=== PATIENT | female | born 1970 ===

== ENCOUNTER 2018-04-28 21:20 | Emergency (ER) | payer SELFPAY ==
[2018-04-28 22:06] VITALS: BMI 30.1
[2018-04-28 22:11] VITALS: O2SAT 95
--- NOTE | 2018-04-28 23:05 | ED PDOC ---
HPI:Nausea, Vomiting, Diarrhea Time Seen by Provider: 04/28/18 22:32 Chief Complaint (Nursing): Flu-like Symptoms Chief Complaint (Provider): Flu-like Symptoms History Per: Patient History/Exam Limitations: no limitations Onset/Duration Of Symptoms: Days (x 5) Current Symptoms Are (Timing): Still Present Quality Of Discomfort: "Pain" Associated Symptoms: Fever, Chills, Nausea, Diarrhea Additional Complaint(s): 47 year old female with no significant medical history presents to the ED with fever, nausea and diarrhea associated with diffuse abdominal pain and chills for five days. Patient reports sick contacts in her family members. Denies blood in vomit or blood. PMD: none provided Past Medical History Reviewed: Historical Data, Nursing Documentation, Vital Signs Vital Signs: Last Vital Signs Temp 102.8 F H 04/28/18 22:10 Pulse 109 H 04/28/18 22:10 Resp 16 04/28/18 22:10 BP 114/76 04/28/18 22:10 Pulse Ox 95 04/28/18 22:10 - Medical History PMH: No Chronic Diseases - Surgical History Surgical History: Cholecystectomy - Family History Family History: States: Unknown Family Hx - Home Medications Home Medications: Ambulatory Orders Medication Instructions Recorded Dicyclomine [Bentyl] 20 mg PO Q12 PRN #20 tab 04/29/18 Ondansetron ODT [Zofran ODT] 4 mg PO Q6 PRN #8 odt 04/29/18 - Allergies Allergies/Adverse Reactions: Allergies Allergy/AdvReac Type Severity Reaction Status Date / Time No Known Allergies Allergy Verified 04/28/18 22:06 Review of Systems ROS Statement: Except As Marked, All Systems Reviewed And Found Negative Constitutional: Positive for: Fever, Chills Respiratory: Negative for: Cough, Shortness of Breath Gastrointestinal: Positive for: Nausea, Abdominal Pain (diffuse), Diarrhea (watery). Negative for: Hematochezia, Hematemesis Physical Exam - Reviewed Nursing Documentation Reviewed: Yes Vital Signs Reviewed: Yes - Physical Exam Appears: Positive for: No Acute Distress Head Exam: Positive for: ATRAUMATIC, NORMAL INSPECTION, NORMOCEPHALIC Skin: Positive for: Normal Color, Warm, Dry. Negative for: Rash Eye Exam: Positive for: Normal appearance, EOMI, PERRL Neck: Positive for: Normal, Painless ROM, Supple Cardiovascular/Chest: Positive for: Regular Rate, Rhythm. Negative for: Murmur Respiratory: Positive for: Normal Breath Sounds. Negative for: Respiratory Distress Gastrointestinal/Abdominal: Positive for: Soft (otherwise), Tenderness (mild diffuse). Negative for: Distended Extremity: Positive for: Normal ROM (x 4). Negative for: Deformity Neurologic/Psych: Positive for: Alert, Oriented (x3). Negative for: Motor/Sensory Deficits - Laboratory Results Result Diagrams: 04/28/18 23:40 04/28/18 23:40 - ECG O2 Sat by Pulse Oximetry: 95 (RA) Pulse Ox Interpretation: Normal Medical Decision Making Medical Decision Makin:53 Impression: abdominal pain and diarrhea Differential diagnoses include but are not limited to: gastroenteritis, colitis and other possible conditions Initial Plan: --CT Abd & pelvis --CMP --CBC --Lipase --Urine dip --Bentyl 10 mg PO --Pepcid 20 mg IVP --Toradol 30 mg IVP --Tylenol 650 mg PO --Zofran 4 mg IVP --C Diff toxin --Influenza AB 00:00 --Patient endorsed to Dr. Lord pending CT, labs and reevaluation. Scribe Attestation: Documented by Gracie Ugarte, acting as a scribe for Delbert Perales MD Provider Scribe Attestation: All medical record entries made by the Scribe were at my direction and personally dictated by me. I have reviewed the chart and agree that the record accurately reflects my personal performance of the history, physical exam, medical decision making, and the department course for this patient. I have also personally directed, reviewed, and agree with the discharge instructions and disposition. Disposition - Clinical Impression Clinical Impression: Gastroenteritis - Patient ED Disposition Is Patient to be Admitted: Transfer of Care Counseled Patient/Family Regarding: Studies Performed, Diagnosis - Disposition Disposition: Transfer of Care Disposition Time: 00:00 Condition: STABLE Prescriptions: Dicyclomine [Bentyl] 20 mg PO Q12 PRN #20 tab PRN Reason: abdominal pain/nausea/vomiting Ondansetron ODT [Zofran ODT] 4 mg PO Q6 PRN #8 odt PRN Reason: Nausea/Vomiting Instructions: Gastroenteritis (ED) Print Language: [email or web address] Patient Signed Over To: Jose Angel Lord Handoff Comments: pending CT, labs and reevaluation
[2018-04-28 23:48] LABS: BASO % 0.6 % (0.0-2.0); HEMOGLOBIN 14.1 g/dL (12.0-16.0); LYMPH # 1.4 K/uL (1.0-4.3); MEAN CELL VOLUME 75.2 fl (81.0-99.0); MEAN CORPUSCULAR HEMOGLOBIN 24.9 pg (27.0-31.0); MEAN CORPUSCULAR HGB CONC 33.2 g/dL (33.0-37.0); MEAN PLATELET VOLUME 11.4 fl (7.2-11.7); MONO # 0.6 K/uL (0.0-0.8); MONO % 7.6 % (0.0-10.0); NEUT # 5.4 K/uL (1.8-7.0); NEUT % 72.8 % (50.0-75.0); NRBC % 0.1 % (0.0-0.0); RBC 5.64 Mil/uL (3.80-5.20); RED CELL DISTRIBUTION WIDTH 15.9 % (11.5-14.5); WHITE BLOOD COUNT 7.4 K/uL (4.8-10.8)
[2018-04-29 00:23] LABS: ALB/GLOB RATIO 1.1 (1.0-2.1); ALBUMIN 4.3 g/dL (3.5-5.0); ALT/SGPT 46 U/L (9-52); AST/SGOT 38 U/L (14-36); BLOOD UREA NITROGEN 10 mg/dl (7-17); CALCIUM 9.1 mg/dL (8.4-10.2); GFR NON-AFRICAN AMERICAN > 60; LIPASE 177 U/L (23-300)
--- NOTE | 2018-04-29 00:26 | ED PDOC ---
- Laboratory Results Result Diagrams: 04/28/18 23:40 04/28/18 23:40 Lab Results: Total Bilirubin 0.2 mg/dl (0.2-1.3) 04/28/18 23:40 AST 38 U/L (14-36) H 04/28/18 23:40 ALT 46 U/L (9-52) 04/28/18 23:40 Alkaline Phosphatase 104 U/L (38-126) 04/28/18 23:40 Total Protein 8.2 G/DL (6.3-8.2) 04/28/18 23:40 Albumin 4.3 g/dL (3.5-5.0) 04/28/18 23:40 Globulin 3.9 gm/dL (2.2-3.9) 04/28/18 23:40 Albumin/Globulin Ratio 1.1 (1.0-2.1) 04/28/18 23:40 Lipase 177 U/L (23-300) 04/28/18 23:40 - ECG O2 Sat by Pulse Oximetry: 95 (RA) Pulse Ox Interpretation: Normal Medical Decision Making Medical Decision Makin:00 --Patient endorsed to this provider by Dr. Perales pending CT, labs and reevaluation. 01:40 CT Abd & Pelvis FINDINGS: LOWER THORAX: There is subsegmental atelectasis in the visualized lungs, worse on the left. LIVER: Normal in size with homogeneous enhancement. Fatty liver. No gross lesion or ductal dilatation. GALLBLADDER AND BILE DUCTS: Well distended. No calcified gallstones, wall thickening or pericholecystic fluid. PANCREAS: Normal in size with homogeneous enhancement. No gross lesion or ductal dilatation. SPLEEN: Normal in size and appearance. ADRENALS: No discrete nodule. KIDNEYS AND URETERS: Normal in size with homogeneous enhancement. No hydronephrosis. No solid mass. There is a 1.2 cm simple cyst in the upper pole of the left kidney. VASCULATURE: No aortic aneurysm. BOWEL: Evaluation of the bowel is limited in the absence of oral contrast. There is fluid in the duodenum. The proximal small bowel loops are normal in caliber. There are fluid-filled mildly prominent mid and distal small bowel loops. There is fluid in the colon. No bowel wall thickening or obstruction. The colon is grossly normal in appearance. No bowel wall thickening or obstruction. APPENDIX: Normal appendix. PERITONEUM: No free fluid. No free air. LYMPH NODES: No enlarged lymph nodes. BLADDER: Partially decompressed. REPRODUCTIVE: The uterus is deviated to the right, normal in size and has lobular contour which may represent intramural fibroids. There is a 6.0 x 4.5 cm well- circumscribed round predominantly fatty mass with eccentric soft tissue density in the anterior midline pelvis. BONES: No acute fracture. Within normal limits for the patient's age. OTHER FINDINGS: None. IMPRESSION: 1. Fluid-filled mildly prominent mid and distal small bowel loops and fluid in the colon most compatible with nonspecific acute infectious/inflammatory enteritis and colitis. 2. 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 Scribe Attestation: Documented by Gracie Ugarte, acting as a scribe for Jose Angel Lord MD Provider Scribe Attestation: All medical record entries made by the Scribe were at my direction and personally dictated by me. I have reviewed the chart and agree that the record accurately reflects my personal performance of the history, physical exam, medical decision making, and the department course for this patient. I have also personally directed, reviewed, and agree with the discharge instructions and disposition. Disposition - Clinical Impression Clinical Impression: Gastroenteritis - POA Present On Arrival: None - Disposition Disposition: Routine/Home Disposition Time: 01:00 Condition: STABLE Prescriptions: Dicyclomine [Bentyl] 20 mg PO Q12 PRN #20 tab PRN Reason: abdominal pain/nausea/vomiting Ondansetron ODT [Zofran ODT] 4 mg PO Q6 PRN #8 odt PRN Reason: Nausea/Vomiting Instructions: Gastroenteritis (ED) Print Language: [place]
[2018-04-29] MEDS ORDERED: Iohexol 300 100 ML IJ ONE (00:29)
[2018-04-29] MEDS ORDERED: Sodium Chloride 0.9% 50 ML IV ONE (00:29)
[2018-04-29 01:28] VITALS: TEMP 99.4
--- NOTE | 2018-04-29 01:43 | CT ---
Date of service: 04/29/2018 PROCEDURE: CT Abdomen and Pelvis with contrast HISTORY: Abdominal pain, diarrhea COMPARISON: Pelvic ultrasound from 09/04/2013. TECHNIQUE: CT scan of the abdomen and pelvis was performed after administration of intravenous contrast. Oral contrast was not administered. Coronal and sagittal reformatted images were obtained. Contrast dose: 95 cc Omnipaque 300 Radiation dose: Total exam DLP = 520.71 mGy-cm. This CT exam was performed using one or more of the following dose reduction techniques: Automated exposure control, adjustment of the mA and/or kV according to patient size, and/or use of iterative reconstruction technique. FINDINGS: LOWER THORAX: There is subsegmental atelectasis in the visualized lungs, worse on the left. LIVER: Normal in size with homogeneous enhancement. Fatty liver. No gross lesion or ductal dilatation. GALLBLADDER AND BILE DUCTS: Well distended. No calcified gallstones, wall thickening or pericholecystic fluid. PANCREAS: Normal in size with homogeneous enhancement. No gross lesion or ductal dilatation. SPLEEN: Normal in size and appearance. ADRENALS: No discrete nodule. KIDNEYS AND URETERS: Normal in size with homogeneous enhancement. No hydronephrosis. No solid mass. There is a 1.2 cm simple cyst in the upper pole of the left kidney. VASCULATURE: No aortic aneurysm. BOWEL: Evaluation of the bowel is limited in the absence of oral contrast. There is fluid in the duodenum. The proximal small bowel loops are normal in caliber. There are fluid-filled mildly prominent mid and distal small bowel loops. There is fluid in the colon. No bowel wall thickening or obstruction. The colon is grossly normal in appearance. No bowel wall thickening or obstruction. APPENDIX: Normal appendix. PERITONEUM: No free fluid. No free air. LYMPH NODES: No enlarged lymph nodes. BLADDER: Partially decompressed. REPRODUCTIVE: The uterus is deviated to the right, normal in size and has lobular contour which may represent intramural fibroids. There is a 6.0 x 4.5 cm well-circumscribed round predominantly fatty mass with eccentric soft tissue density in the anterior midline pelvis. BONES: No acute fracture. Within normal limits for the patient's age. OTHER FINDINGS: None. IMPRESSION: 1. Fluid-filled mildly prominent mid and distal small bowel loops and fluid in the colon most compatible with nonspecific acute infectious/inflammatory enteritis and colitis. 2. 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
[2018-04-29 02:05] VITALS: BP 103/72; PULSE 80; RESP 15
== END 2018-04-29 02:12 | disposition home or self-care (01) ==
LOC: H.ER 21:20
DX: K52.9 Noninfective gastroenteritis and colitis, unspecified (principal)
CPT/HCPCS: 74177; 80053; 81025; 83690; 85025; 87086; 87181; 87804; 96374; 96375; 99283; J1885; J2405; Q9967